=== PATIENT | female | born 2000 | race Hispanic/Latino ===

== ENCOUNTER 2023-08-13 19:28 | Emergency (ER) | payer SELFPAY ==
[2023-08-13 21:39] LABS: #Basophils 0.1 thou/uL (0.0-0.2); #Eosinphils 0.7 thou/uL (0.0-0.7); #Neutrophils 5.9 thou/uL (1.40-6.50); %Basophils 0.5 % (0.0-1.0); %Eosinophils 6.2 % (0.0-10.0); %Lymphocytes 30.9 % (21.0-51.0); %Monocytes 9.2 % (0.0-10.0); %Neutrophils 52.7 % (42.0-75.0); Hematocrit 42.5 % (36.0-47.0); Hemoglobin 14.2 g/dL (12.0-16.0); Mean Corpuscular HGB CONC 33.4 g/dL (32.0-36.0); Mean Corpuscular Hemoglobin 30.2 pg (27.0-31.0); Mean Corpuscular Volume 90.4 fl (78.0-98.0); Mean Platelet Volume 9.3 fL (7.4-10.4); Platelet Count 292 10x3/uL (130-400); RBC Distribution Width 12.3 % (11.5-14.5); White Blood Cell (WBC) Count 11.2 10x3/uL (4.8-10.8)
[2023-08-13 22:01] LABS: ALT (SGPT) 46 U/L (8-55); AST (SGOT) 28 U/L (5-34); Alkaline Phosphatase 103 U/L (40-110); Anion Gap 14 mmol/L (10-20); BUN (Urea Nitrogen) 11 mg/dL (7.0-18.7); Bilirubin, Total 0.4 mg/dL (0.2-1.2); Calc. Creatinine Clearance 0 mL/min (70-130); Calcium 9.8 mg/dL (7.8-10.44); Carbon Dioxide 25 mmol/L (22-29); Chloride 105 mmol/L (98-107); Estimated GFR 126; Globulin 2.5 g/dL (2.4-3.5); Glucose 98 mg/dL (70-105); Potassium 3.8 mmol/L (3.5-5.1); Protein, Total 7.5 g/dL (6.0-8.3); Sodium 140 mmol/L (136-145)
[2023-08-13 22:05] LABS: Troponin I Less than 0.010 ng/mL (< 0.028)
== END 2023-08-13 22:42 | disposition home or self-care (01) ==
LOC: ERS 19:28
DX: R20.2 Paresthesia of skin (principal); R20.0 Anesthesia of skin; F17.210 Nicotine dependence, cigarettes, uncomplicated
CPT/HCPCS: 36415; 70450; 80053; 84484; 85025; 93005